=== PATIENT | female | born 1950 | race Caucasian/White ===

== ENCOUNTER → 2016-12-27 | Day surgery (SDC) | payer MEDICARE ==
[~2016-12-27] MED LIST: BACITRACIN IM FOR SOLN 50,000 UNIT VIAL ONE; BUPIVACAINE/EPINEPHRINE 0.25% 50 ML VIAL ONE; BUPIVACAINE/EPINEPHRINE 0.25% PF 10 ML VIAL INFIL ONE; GENTAMICIN SULFATE 80 MG/2 ML VIAL ONE; KETOROLAC TROMETHAMINE 30 MG/ML (IVP) VIAL IV PUSH ONE; LACTATED RINGER'S 1000 ML INJ 1,000 ML ONE; MORPHINE SULFATE 4 MG/ML INJ ONE; ONDANSETRON HCL 4 MG/2 ML VIAL IV PUSH ONE; PROMETHAZINE INJ 25 MG/ML VIAL ONE; PROPOFOL 200 MG/20 ML AMP IV ONE; SODIUM CHLORIDE 0.9% 20 ML VIAL ONE; VANCOMYCIN HCL 1000 MG VIAL ONE; ceFAZolin 2 GM PREMIX 50 ML ONE; ceFAZolin INJ 1,000 MG VIAL ONE; oxyCODONE/ACETAMINOPHEN 5 MG/325 MG TAB ONE
--- NOTE | 2016-12-27 08:43 | TN ---
cc: HORTENSIA VALDES DATE OF SURGERY 12/27/2016 PREOPERATIVE DIAGNOSIS 1. Osteoarthritis of left knee. 2. Chondromalacia patella, left knee. POSTOPERATIVE DIAGNOSIS 1. Osteoarthritis of left knee. 2. Chondromalacia patella, left knee. PROCEDURE 1. Left knee unicompartmental replacement arthroplasty. 2. Partial patellectomy SURGEON Hortensia Valdes MD [employer] CEO Humberto Valdes MD ANESTHESIA General ESTIMATED BLOOD LOSS Less than 100 cc INDICATION This is a 66-year female with significant left leg pain. The patient has had progressive longstanding arthritis of the left knee treated with injections, oral medications, physical therapy, brace wear, use of assistive gait aid and arthroscopic surgery at one time. She now presents for surgical treatment. COMPONENTS Company: [employer] Femur: Size one, left medial, metal, cemented. Tibia: Size one, all polyethylene, 6.5 mm, cemented. PROCEDURE The patient was brought to the operating room, anesthetized in the supine position. The patient's left leg was placed in the arthroscopy nails. The left leg was scrubbed with alcohol followed by Hibiclens, followed by Chloraprep and draped sterilely. Antibiotics were given within a one hour time window and a time-out was done. After exsanguination, the tourniquet was inflated to 250 mmHg. An anterior and slightly medial incision was made. A medium parapatellar arthrotomy was performed. The medial facet of patella was resected decreasing contacting forces. The posterior facet of the femur was resected using a sizing guide. The tibia was contoured freehand for tibial inlay. We sized this for a #1 tibial component. The fit overall was very good. We then sized this for #1 femoral component. This was contoured freehand. A fin cut was utilized using a drill first. Trial component showed excellent balancing in flexion and extension. A medial osteophyte for the femur was removed with the rongeur. On the back table, one packet of methacrylate was mixed. A field block with quarter percent Marcaine with epinephrine was utilized. The components were cemented. Excess cement was removed. The knee was brought into full extension. Hemostasis was controlled. A deep drain brought out through separate stab incision. The arthrotomy was repaired interrupted #2 Tycron sutures. The subcutaneous tissues with 2-0 Vicryl suture and skin with running intradermal 3-0 Vicryl followed by Benzoin, and Steri-Strips. Sponge count, needle counts, and instrument counts were all correct. The patient tolerated the procedure well and was taken to the Recovery Room in satisfactory condition. MD RASHID Roberts/BRANDIN /8:23 AM /8:32 AM
== END | disposition home or self-care (01) ==
LOC: ESDC 06:07
PROVIDERS: ATTEND Orthopaedic Surgery Orthopaedic Surgery of the Spine
DX: M17.12 Unilateral primary osteoarthritis, left knee (principal); M22.42 Chondromalacia patellae, left knee
CPT/HCPCS: 01400; 27446; C1776; J0690; J1580; J1885; J2270; J2405; J2550; J3010; J3370; J7120